=== PATIENT | female | born 1955 | race Caucasian/White ===

== ENCOUNTER 2017-09-15 05:39 | Day surgery (SDC) | payer BC ==
[~2017-09-15] VITALS: Ht 167.6 cm; Wt 68.0 kg
[~2017-09-15 05:39] MED LIST: CALCIUM 500 MG1 EACH PO; CULTURELLE1 EAC1 PO; Estrace PO; FLONASE ALLERG9.9 ML BOTH NARES; Flonase BOTH NARES; Lactaid Fast Acting PO; Motrin PO; OMEGA-3100 MG PO; Tums,OsCal PO; VITAMIN D2000 UNI1 PO; Vicodin,Norco 5/325 PO; ZANTAC150 MG PO; ZETONNA6.1 GM BOTH NARES; ZOLOFT100 MG PO; [UNRECOGNIZED DRUG - OTHER] PO
[2017-09-15 06:04] VITALS: BP 124/73
[2017-09-15] MEDS ORDERED: HYDROMORPHONE HC4 MG PO (11:26)
[2017-09-15 12:58] VITALS: BP 127/80
[2017-09-15 14:05] VITALS: BP 143/68
== END 2017-09-15 14:32 | disposition home or self-care (01) ==
LOC: NUC 05:39 → SDC 05:39 → NUC 07:00 → SDC 07:00 → NUC 09:00 → SDC 14:32
DX: C50.219 Malignant neoplasm of upper-inner quadrant of unspecified female breast (principal); Z17.0 Estrogen receptor positive status [ER+]; I10 Essential (primary) hypertension; Z88.2 Allergy status to sulfonamides; Z91.040 Latex allergy status
CPT/HCPCS: 78195; 88305; 88307; A9541; J0131; J0690; J1100; J1170; J2405; J3010; S0020

== ENCOUNTER → 2017-11-10 | Outpatient (CLI) | payer BC ==
[~2017-11-10] MED LIST changes: +HYDROMORPHONE HC4 MG PO; +ONDANSETRON HCL8 MG PO; +PROCHLORPERAZIN10 MG PO
== END | disposition home or self-care (01) ==
LOC: PICC 10:00
DX: C50.219 Malignant neoplasm of upper-inner quadrant of unspecified female breast (principal)
CPT/HCPCS: 76937